=== PATIENT | male | born 1970 | race Two or more races ===

== ENCOUNTER 2020-09-18 19:51 | Observation (INO) | payer OTHER ==
[2020-09-18] MEDS ORDERED: Sodium Chloride 0.9% 2.5 ML Syringe FLUSH PRN (20:30)
[2020-09-18] MEDS ORDERED: Sodium Chloride 0.9% 10 ML Syringe FLUSH PRN (20:30)
[2020-09-18] MEDS ORDERED: Sodium Chloride 0.9% 1,000 ML IV ONE (20:30)
--- NOTE | 2020-09-18 20:33 | EDM.PDOC ---
<Felicita Marley - Last Filed: 09/18/20 22:10> ED HPI GENERAL MEDICAL PROBLEM - General Chief Complaint: Respiratory Problem Stated Complaint: PNEUMONIA, CHEST CONGESTION Time Seen by Provider: 09/18/20 20:02 Source of Information: Reports: Patient History Limitations: Reports: No Limitations - History of Present Illness INITIAL COMMENTS - FREE TEXT/NARRATIVE: HISTORY AND PHYSICAL: History of present illness: The patient is a 50-year-old male with a history of Covid on August 24 presents to the emergency department with complaints of cough, vomiting, dizziness, pressure in bilateral ears. The patient reports that he has had a double ear infection since April. He had been diagnosed with a viral viral Covid pneumonia on August 24 and was not placed on antibiotics. He states then he was placed on several different kinds of antibiotics and steroids. Presently the patient is taking Zithromax and is on a course of a 3-week steroid tapering. The patient states that he was on a 24-hour car ride and came home today. He went out for dinner and felt dizzy and vomited after a coughing fit. He has been using his albuterol inhaler which does not seem to help at all. He states that he has chest tightness. Patient denies any fever, chills, headache, change in vision, syncope or near syncope. Denies any chest pain, back pain. Denies any abdominal pain, nausea, vomiting, diarrhea, constipation or dysuria. Has not noted any blood in urine or stool. Patient has been eating and drinking appropriately. Review of systems: As per history of present illness and below otherwise all systems reviewed and negative. Past medical history: As per history of present illness and as reviewed below otherwise noncontributory. Surgical history: As per history of present illness and as reviewed below otherwise noncontributory. Social history: See social history for further information Family history: As per history of present illness and as reviewed below otherwise noncontributory. Physical exam: General: Well developed and well nourished. Alert and orientated x 3. Nontoxic in appearance and in no acute distress. Vital signs are stable and have been reviewed by me. Nursing notes were reviewed. HEENT: Atraumatic, normocephalic, pupils equal and reactive bilaterally, negative for conjunctival pallor or scleral icterus, mucous membranes moist, TMs normal bilaterally, throat clear, neck supple, nontender, trachea midline. No drooling or trismus noted. No meningeal signs. No hot potato voice noted. Lungs: Clear to auscultation bilaterally. No wheezes, rales, or rhonchi. Chest nontender. Normal work of breathing, no accessory muscles used. Heart: S1S2, regular rate and rhythm without overt murmur, gallops, or rubs. No JVD. No peripheral edema Abdomen: Soft, nondistended, nontender. Normoactive bowel sounds. Negative for masses or costovertebral tenderness. Skin: Intact, warm, dry. No lesions or rashes noted. Hematologic: No petechiae or purpra. Mucosa appropriate color and normal nail bed color and refill. Extremities: Atraumatic, moves all extremities per self without difficulty or deficits, negative for cords or calf pain. Neurovascular unremarkable. Neuro: Awake, alert, oriented. Cranial nerves II through XII unremarkable. Cerebellum unremarkable. Motor and sensory unremarkable throughout. Exam nonfocal. Psychiatric: Mood and affect are appropriate. Normal thought process. Answering questions appropriately. Notes: *This patient was seen and evaluated during the 2019 SARS-CoV-2 novel coronavirus pandemic period. Community viral transmission is ongoing at time of this encounter and the emergency department is operating under pandemic response procedures. As stated above the patient is here for continued cough and shortness of breath and chest tightness. He has been on multiple rounds of antibiotics and is currently on Zithromax. He has been on several rounds of oral steroids and is currently in a 3-week taper down dose of prednisone. As the patient is tachycardic and short of breath I will obtain an EKG, PE study, and labs. I will order the patient IV fluids and Zofran for his nausea. The patient and the are agreeable to this plan. The patient CBC is unremarkable. The state patient's glucose is 480. He has not taken his evening Metformin of 1000 mg. I will treat him with 5 units of regular insulin and recheck his glucose in 30 minutes post insulin administration. I offered to give the patient his evening Metformin but he refused. Report given to Dr. Washington. He will disposition the patient. I have talked with the patient about today's findings, in addition to providing specific details for plan of care. Reassessment at the time of disposition demonstrates that the patient is in no acute distress. The patient is stable for discharge, counseling was provided and we discussed in great detail signs and symptoms that would prompt them to return to the Emergency Department. Medication, follow up and supportive care measures were reviewed and discussed. Voices understanding and is agreeable to plan of care. Denies any further questions or concerns at this time. Diagnostics: CBC, CMP, troponin, EKG, PE study Therapeutics: IV fluids, Zofran, Regular insulin 5 units SC Prescription: Impression: Plan: 1. You were evaluated today on an emergent basis. Your 2. You can alternate Tylenol and ibuprofen as needed for pain and fever management. 3. We encourage you to follow up with your primary care provider and/or recommended specialist in the next few days for re-evaluation and further care/management. 4. If your symptoms should worsen, new symptoms develop or any of the signs and symptoms we discussed should arise please return to the emergency room or call 911 (if needed). Definitive disposition and diagnosis as appropriate pending reevaluation and review of above. - Related Data Allergies Allergy/AdvReac Type Severity Reaction Status Date / Time codeine AdvReac Mild Anxiety Verified 09/18/20 20:25 Past Medical History HEENT History: Reports: None Cardiovascular History: Reports: None Respiratory History: Reports: Pneumonia, Recurrent Gastrointestinal History: Reports: None Genitourinary History: Reports: None Musculoskeletal History: Reports: None Neurological History: Reports: None Psychiatric History: Reports: None Hematologic History: Reports: None Immunologic History: Reports: None Oncologic (Cancer) History: Reports: None Dermatologic History: Reports: None - Infectious Disease History Infectious Disease History: Reports: Chicken Pox Social & Family History - Family History Family Medical History: No Pertinent Family History - Tobacco Use Tobacco Use Status *Q: Never Tobacco User - Caffeine Use Caffeine Use: Reports: None - Recreational Drug Use Recreational Drug Use: No ED ROS GENERAL - Review of Systems Review Of Systems: Comprehensive ROS is negative, except as noted in HPI. ED EXAM, GENERAL - Physical Exam Exam: See Below (See dictation) Departure - Departure Disposition: Refer to Observation Clinical Impression: Pulmonary embolism Qualifiers: Pulmonary embolism type: unspecified Chronicity: acute Acute cor pulmonale presence: without acute cor pulmonale Qualified Code(s): I26.99 - Other pulmon gina embolism without acute cor pulmonale - Discharge Information Referrals: Radha Strong NP [Primary Care Provider] - Forms: ED Department Discharge Sepsis Event Note (ED) - Evaluation Sepsis Screening Result: No Definite Risk <Stas Washington - Last Filed: 09/18/20 23:29> Course - Vital Signs Last Recorded V/S: Last Vital Signs Temp 97.8 F 09/18/20 20:10 Pulse 114 H 09/18/20 20:10 Resp 18 09/18/20 20:10 BP 125/86 09/18/20 20:10 Pulse Ox 96 09/18/20 20:10 - Orders/Labs/Meds Orders: Active Orders 24 hr Category Date Time Status EKG Documentation Completion [RC] STAT Care 09/18/20 20:30 Active Glucose [Blood Glucose Check, Bedside] [RC] ONETIME Care 09/18/20 21:59 Active CORONAVIRUS COVID-19 ULYSSES [MOLEC] Stat Lab 09/18/20 23:22 Ordered INR,PT,PROTHROMBIN TIME [COAG] Stat Lab 09/18/20 23:23 Ordered PTT,PARTIAL THROMBOPLSTIN TIME [COAG] Stat Lab 09/18/20 23:23 Ordered Dextrose 50% in Water Med 09/18/20 21:36 Active 50 ml IV ASDIRECTED PRN Dextrose 50% in Water Med 09/18/20 23:28 Ordered 50 ml IV ASDIRECTED PRN Glucagon,Human Recombinant [GlucaGen] Med 09/18/20 21:36 Active 1 mg IM ASDIRECTED PRN Glucagon,Human Recombinant [GlucaGen] Med 09/18/20 23:28 Ordered 1 mg IM ASDIRECTED PRN Insulin Regular, Human [NovoLIN R] Med 09/18/20 23:28 Once 10 unit IVPUSH ONETIME ONE Sodium Chloride 0.9% [Saline Flush] Med 09/18/20 20:30 Active 10 ml FLUSH ASDIRECTED PRN Sodium Chloride 0.9% [Saline Flush] Med 09/18/20 20:30 Active 2.5 ml FLUSH ASDIRECTED PRN Saline Lock Insert [OM.PC] Stat Oth 09/18/20 20:30 Ordered Medication Orders Dextrose/Water (50% Dextrose In Water 50 Ml Syringe) 50 ml IV ASDIRECTED PRN PRN Reason: Hypoglycemia Glucagon (Glucagon,Human Recombinant 1 Mg Vial) 1 mg IM ASDIRECTED PRN PRN Reason: Hypoglycemia Sodium Chloride (Sodium Chloride 0.9% 10 Ml Syringe) 10 ml FLUSH ASDIRECTED PRN PRN Reason: Keep Vein Open Last Admin: 09/18/20 20:49 Dose: 10 ml Documented by: STEPHANIE Sodium Chloride (Sodium Chloride 0.9% 2.5 Ml Syringe) 2.5 ml FLUSH ASDIRECTED PRN PRN Reason: Keep Vein Open Last Admin: 09/18/20 20:50 Dose: 2.5 ml Documented by: STEPHANIE Labs: Laboratory Tests 09/18/20 09/18/20 09/18/20 Range/Units 20:46 20:46 22:18 WBC 11.57 H (4.0-11.0) K/uL RBC 5.24 (4.50-5.90) M/uL Hgb 16.3 (13.0-17.0) g/dL Hct 46.0 (38.0-50.0) % MCV 87.8 (80.0-98.0) fL MCH 31.1 (27.0-32.0) pg MCHC 35.4 (31.0-37.0) g/dL RDW Std Deviation 43.3 (28.0-62.0) fl RDW Coeff of Sandra 14 (11.0-15.0) % Plt Count 324 (150-400) K/uL MPV 10.30 (7.40-12.00) fL Add Manual Diff YES Neutrophils % (Manual) 83 H (48.0-80.0) % Band Neutrophils % 4 % Lymphocytes % (Manual) 10 L (16.0-40.0) % Monocytes % (Manual) 2 (0.0-15.0) % Metamyelocytes % 1 % Nucleated RBC % 0.0 /100WBC Absolute Seg Neuts 9.6 H (1.4-5.7) Band Neutrophils # 0.5 Lymphocytes # (Manual) 1.2 (0.6-2.4) Monocytes # (Manual) 0.2 (0.0-0.8) Absolute Metamyelocyte 0.1 Nucleated RBCs # 0 K/uL Sodium 133 L (136-148) mmol/L Potassium 4.7 (3.5-5.1) mmol/L Chloride 97 L (98-107) mmol/L Carbon Dioxide 27.5 (21.0-32.0) mmol/L BUN 12 (7.0-18.0) mg/dL Creatinine 1.2 (0.8-1.3) mg/dL Est Cr Clr Drug Dosing 72.04 mL/min Estimated GFR (MDRD) > 60.0 ml/min Glucose 480 H (74-106) mg/dL POC Glucose 346 H (70-99) mg/dL Calcium 9.0 (8.5-10.1) mg/dL Total Bilirubin 1.0 (0.2-1.0) mg/dL AST 13 L (15-37) IU/L ALT 32 (14-63) IU/L Alkaline Phosphatase 94 (46-116) U/L Troponin I < 0.050 (0.000-0.056) ng/mL Total Protein 7.1 (6.4-8.2) g/dL Albumin 3.4 (3.4-5.0) g/dL Globulin 3.7 (2.6-4.0) g/dL Albumin/Globulin Ratio 0.9 (0.9-1.6) Meds: Medications Generic Name Dose Route Start Last Admin Trade Name Freq PRN Reason Stop Dose Admin Dextrose/Water 50 ml 09/18/20 21:36 50% Dextrose In Water 50 Ml Syringe IV ASDIRECTED PRN Hypoglycemia Glucagon 1 mg 09/18/20 21:36 Glucagon,Human Recombinant 1 Mg Vial IM ASDIRECTED PRN Hypoglycemia Sodium Chloride 10 ml 09/18/20 20:30 09/18/20 20:49 Sodium Chloride 0.9% 10 Ml Syringe FLUSH 10 ml ASDIRECTED PRN Administration Keep Vein Open Sodium Chloride 2.5 ml 09/18/20 20:30 09/18/20 20:50 Sodium Chloride 0.9% 2.5 Ml Syringe FLUSH 2.5 ml ASDIRECTED PRN Administration Keep Vein Open Discontinued Medications Generic Name Dose Route Start Last Admin Trade Name Freq PRN Reason Stop Dose Admin Enoxaparin Sodium 100 mg 09/18/20 23:23 Enoxaparin 100 Mg/1 Ml Syringe SUBCUT 09/18/20 23:24 ONETIME ONE Sodium Chloride 1,000 mls @ 999 mls/hr 09/18/20 20:30 09/18/20 20:50 Normal Saline IV 09/18/20 21:30 999 mls/hr .BOLUS ONE Administration Insulin Human Regular 5 unit 09/18/20 21:36 09/18/20 21:51 Insulin Regular, Human 100 Units/Ml 10 Ml Vial SUBCUT 09/18/20 21:37 5 units ONETIME ONE Administration Protocol Iopamidol 100 ml 09/18/20 22:19 09/18/20 22:20 Iopamidol 755 Mg/Ml 500 Ml Multipack Bottle IVPUSH 09/18/20 22:20 100 ml ONETIME STA Administration - Re-Assessments/Exams Free Text/Narrative Re-Assessment/Exam: 09/18/20 22:54 CT imaging is remarkable for possible small peripheral pulmonary embolism. 09/18/20 23:29 CT scan concerning for pulmonary embolism, patient agreeable to stay in the hospital, will admit to telemetry Alps. Departure - Departure Time of Disposition: 23:29 Condition: Good Sepsis Event Note (ED) - Focused Exam Vital Signs: Vital Signs Temp Pulse Resp BP Pulse Ox 09/18/20 20:10 97.8 F 114 H 18 125/86 96 - My Orders Last 24 Hours: My Active Orders 09/18/20 23:22 CORONAVIRUS COVID-19 ULYSSES [MOLEC] Stat 09/18/20 23:23 INR,PT,PROTHROMBIN TIME [COAG] Stat PTT,PARTIAL THROMBOPLSTIN TIME [COAG] Stat 09/18/20 23:28 Dextrose 50% in Water 50 ml IV ASDIRECTED PRN Glucagon,Human Recombinant [GlucaGen] 1 mg IM ASDIRECTED PRN Insulin Regular, Human [NovoLIN R] 10 unit IVPUSH ONETIME ONE - Assessment/Plan Last 24 Hours: My Active Orders 09/18/20 23:22 CORONAVIRUS COVID-19 ULYSSES [MOLEC] Stat 09/18/20 23:23 INR,PT,PROTHROMBIN TIME [COAG] Stat PTT,PARTIAL THROMBOPLSTIN TIME [COAG] Stat 09/18/20 23:28 Dextrose 50% in Water 50 ml IV ASDIRECTED PRN Glucagon,Human Recombinant [GlucaGen] 1 mg IM ASDIRECTED PRN Insulin Regular, Human [NovoLIN R] 10 unit IVPUSH ONETIME ONE
--- NOTE | 2020-09-18 21:02 | PCM.EKG ---
#1 Interpretation EKG Date: 09/18/20 Time: 20:51 Rhythm: NSR Rate (Beats/Min): 100 [place]: Normal P-Wave: Present QRS: Normal ST-T: Normal QT: Normal DE/PQ Interval: 114 Comparison: NA - No Prior EKG EKG Interpretation Comments: normal EKG
[2020-09-18 21:27] LABS: BLOOD UREA NITROGEN,BUN 12 mg/dL (7.0-18.0); CARBON DIOXIDE,CO2 27.5 mmol/L (21.0-32.0); CHLORIDE,CL 97 mmol/L (98-107); GLUCOSE RANDOM 480 mg/dL (74-106); POTASSIUM,K 4.7 mmol/L (3.5-5.1); SODIUM,NA 133 mmol/L (136-148)
[2020-09-18] MEDS ORDERED: Insulin Regular, Human 100 Units/ML 10 ML Vial SUBCUT ONE (21:36)
[2020-09-18] MEDS ORDERED: 50% Dextrose in Water 50 ML Syringe IV PRN ×2 (21:36→23:28)
[2020-09-18] MEDS ORDERED: Glucagon,Human Recombinant 1 MG Vial IM PRN ×2 (21:36→23:28)
[2020-09-18] MEDS ORDERED: Iopamidol 755 MG/ML 500 ML Multipack Bottle IVPUSH STA (22:19)
--- NOTE | 2020-09-18 22:49 | CT ---
Indication: Post COVID. Tachycardia. Shortness of breath. Technique: Multiple contiguous axial images were obtained from the thoracic inlet through the upper abdomen after the intravenous administration 100 milliliters Isovue 370. This examination is tailored for the evaluation of pulmonary arteries. Please note that all CT scans at this facility use dose modulation, iterative reconstruction, and/or weight-based dosing when appropriate to reduce radiation dose to as low as reasonably achievable. Comparison: None Findings: Questionable small pulmonary embolism is identified peripherally within the pulmonary artery to the right lower lobe. This is best seen on image number 107, series 401. This measures 1 cm in length. There is no evidence of right heart strain. The heart is normal in size. No pericardial effusion is identified. No mediastinal, hilar, or axillary lymphadenopathy is identified. A small pericardial effusion is identified. The aorta is normal in caliber. The visualized portions of the liver, gallbladder, spleen, pancreas, adrenals, and kidneys are normal. Degenerative changes of the spine are identified. No lytic or blastic lesions are seen. Patchy ground-glass opacities are identified bilaterally, peripherally. This is nonspecific. No pleural effusion or pneumothorax is identified. 3 mm pleural-based pulmonary nodule posterior right lower lobe, best seen on image 47, series 3. Impression: Questionable nonocclusive thrombus identified within the pulmonary artery to the right lower lobe. Peripheral patchy ground-glass opacities bilaterally, mild. This is nonspecific. Right lower lobe pulmonary nodule. Follow up should be performed according to the Fleischner Society Criteria. These findings were called to Dr. Freeman at the time of this dictation. Please note that all CT scans at this facility use dose modulation, iterative reconstruction, and/or weight-based dosing when appropriate to reduce radiation dose to as low as reasonably achievable. Dictated by Ramona Pierre MD @ 09/18/2020 10:47:[address] Ramona Pierre @ Sep 18 2020 10:47PM
[2020-09-18] MEDS ORDERED: Enoxaparin 100 MG/1 ML Syringe SUBCUT ONE (23:23)
[2020-09-18] MEDS ORDERED: Insulin Regular, Human 100 Units/ML 10 ML Vial IVPUSH ONE (23:28)
[2020-09-19] MEDS ORDERED: Acetaminophen 325 MG Tab PO PRN (02:38)
[2020-09-19] MEDS ORDERED: Albuterol/Ipratropium 3.0-0.5 MG/3 ML Neb Soln NEB PRN (02:38)
[2020-09-19] MEDS ORDERED: Glucagon,Human Recombinant 1 MG Vial IM PRN (02:41)
[2020-09-19] MEDS ORDERED: 50% Dextrose in Water 50 ML Syringe IV PRN (02:41)
[2020-09-19] MEDS ORDERED: Lactated Ringers 1,000 ML IV SCH (02:45)
[2020-09-19] MEDS ORDERED: Levofloxacin/Dextrose 5%-Water 750 MG in Premix Bag 1 BAG IV ONE (03:00)
[2020-09-19 05:41] LABS: HEMOGLOBIN A1C 10.1 %
[2020-09-19 05:42] LABS: BLOOD UREA NITROGEN,BUN 10 mg/dL (7.0-18.0); CARBON DIOXIDE,CO2 29.1 mmol/L (21.0-32.0); CHLORIDE,CL 103 mmol/L (98-107); GLUCOSE RANDOM 266 mg/dL (74-106); SODIUM,NA 138 mmol/L (136-148)
[2020-09-19] MEDS: Insulin Aspart 100 Units/ML 3 ML Pen SUBCUT SCH ×2 (07:43→11:55)
--- NOTE | 2020-09-19 08:16 | PCM.HP.2 ---
H&P History of Present Illness - General Date of Service: 09/19/20 Admit Problem/Dx: Admission Diagnosis/Problem Admission Diagnosis/Problem Pulmonary embolism Source of Information: Patient History Limitations: Reports: No Limitations - History of Present Illness Initial Comments - Free Text/Narative: This 50-year-old male with past medical history of diabetes and recent COVID-19 infection found on August 24, 2020, presented to the ER with complaints of continued cough shortness of breath and otherwise not feeling well. He reports has been on multiple rounds of antibiotics and steroids recently took a long 24- hour car ride home and back to [place] and arrived yesterday evening. He reports that he went out to eat had a coughing fit and vomited. He reports he has had continued shortness of breath since having COVID-19. He denied needing hospitalization but noted he was hypoxic at 1 point and was treated with nebulizers to improve his oxygenation. He denies any chills fevers sore throat. Denies any chest pain reports mild shortness of breath. Denies any hemoptysis. Denies any neurological symptoms. Denies any abdominal pain or urinary concerns. No black or bloody bowel movements. He reports that he recently drove 19 hours to and from [place] back to [place]. He denies any tobacco use no recreational drug use and intermittent social alcohol use. Denies any history of blood clots and family history of blood clots. Denies any cancer history for himself. In the ER mild leukocytosis noted 11,570, platelet count 324,000. Hemoglobin 16.3 hematocrit 46.0. Sodium 133 potassium 4.7 glucose elevated at 480 troponin negative. Due to recent history of COVID-19 and long car ride CT Angio chest was obtained which revealed nonocclusive thrombus identified within the pulmonary artery to the right lower lobe, peripheral patchy groundglass opacities bilaterally which is mild. Right lower lobe pulmonary nodule which should be followed up in 6 months with PCP. No right heart strain noted on CT. Patient was treated with full dose Lovenox, Levaquin and insulin while in the ER. Patient will be admitted observation for pulmonary embolism. - Related Data Allergies/Adverse Reactions: Allergies Allergy/AdvReac Type Severity Reaction Status Date / Time codeine AdvReac Mild Anxiety Verified 09/19/20 01:38 Home Medications: Home Meds Acetaminophen [Tylenol] 650 mg PO Q4H PRN tablet 09/19/20 [Rx] Albuterol/Ipratropium [DuoNeb 3.0-0.5 MG/3 ML] 1 ampule INH Q6HR #1 box 09/19/20 [Rx] Apixaban [Eliquis] 5 - 10 mg PO BID #70 tablet 09/19/20 [Rx] Ascorbic Acid [Vitamin C] 1,000 mg PO DAILY 09/19/20 [History] Cholecalciferol (Vitamin D3) [Vitamin D3] 1,000 unit PO DAILY 09/19/20 [History] Fluticasone Propionate [Flonase] 1 - 2 spray NS ASDIRECTED 09/19/20 [History] Insulin Aspart [NovoLOG] See Protocol SUBCUT TIDAC #1 pen 09/19/20 [Rx] Levofloxacin [Levaquin] 750 mg PO DAILY 5 Days #5 tablet 09/19/20 [Rx] Pen Needle, Diabetic [Pen Needle] 1 each MC TID #1 box 09/19/20 [Rx] metFORMIN HCl [Metformin HCl] 1 tab PO ASDIRECTED 09/19/20 [History] predniSONE [Prednisone] 2 tab PO ASDIRECTED #0 09/19/20 [Rx] Past Medical History HEENT History: Reports: None Cardiovascular History: Reports: None Respiratory History: Reports: Pneumonia, Recurrent Gastrointestinal History: Reports: None Genitourinary History: Reports: None Musculoskeletal History: Reports: None Neurological History: Reports: None Psychiatric History: Reports: None Endocrine/Metabolic History: Reports: Diabetes, Type II Hematologic History: Reports: None Immunologic History: Reports: None Oncologic (Cancer) History: Reports: None Dermatologic History: Reports: None - Infectious Disease History Infectious Disease History: Reports: Chicken Pox Social & Family History - Family History Family Medical History: No Pertinent Family History - Tobacco Use Tobacco Use Status *Q: Never Tobacco User - Caffeine Use Caffeine Use: Reports: Soda - Recreational Drug Use Recreational Drug Use: No H&P Review of Systems - Review of Systems: Review Of Systems: See Below General: Reports: No Symptoms. Denies: Fever, Chills, Malaise, Weakness HEENT: Reports: No Symptoms. Denies: Headaches, Sinus Congestion, Sore Throat Pulmonary: Reports: Shortness of Breath, Pleuritic Chest Pain Cardiovascular: Reports: No Symptoms. Denies: Chest Pain, Syncope Gastrointestinal: Reports: No Symptoms. Denies: Abdominal Pain, Black Stool, Bloody Stool, Nausea, Vomiting Genitourinary: Reports: No Symptoms. Denies: Dysuria, Frequency Musculoskeletal: Reports: No Symptoms Skin: Reports: No Symptoms Psychiatric: Reports: No Symptoms Neurological: Reports: No Symptoms Hematologic/Lymphatic: Reports: No Symptoms Immunologic: Reports: No Symptoms Exam - Exam Exam: See Below - Vital Signs Vital Signs: Last Vital Signs Temp 97.5 F 09/19/20 07:30 Pulse 84 09/19/20 07:30 Resp 17 09/19/20 07:30 BP 126/83 09/19/20 07:30 Pulse Ox 94 L 09/19/20 07:30 Weight: 73.119 kg - Exam Quality Assessment: DVT Prophylaxis. No: Supplemental Oxygen General: Alert, Oriented, Cooperative Neck: Supple, Trachea Midline Lungs: Clear to Auscultation, Normal Respiratory Effort Cardiovascular: Regular Rate, Regular Rhythm, Normal S1, Normal S2 GI/Abdominal Exam: Normal Bowel Sounds, Soft, Non-Tender Back Exam: Normal Inspection, Full Range of Motion Extremities: Normal Inspection, Normal Range of Motion, Non-Tender, No Pedal Edema Skin: Warm, Dry Neurological: Cranial Nerves Intact Neuro Extensive - Mental Status: Alert, Oriented x3 Neuro Extensive - Motor, Sensory, Reflexes: CN II-XII Intact Psychiatric: Alert, Normal Affect, Normal Mood - Patient Data Lab Results Last 24 hrs: Laboratory Results - last 24 hr 09/18/20 09/18/20 09/18/20 Range/Units 20:46 20:46 22:18 WBC 11.57 H (4.0-11.0) K/uL RBC 5.24 (4.50-5.90) M/uL Hgb 16.3 (13.0-17.0) g/dL Hct 46.0 (38.0-50.0) % MCV 87.8 (80.0-98.0) fL MCH 31.1 (27.0-32.0) pg MCHC 35.4 (31.0-37.0) g/dL RDW Std Deviation 43.3 (28.0-62.0) fl RDW Coeff of Sandra 14 (11.0-15.0) % Plt Count 324 (150-400) K/uL MPV 10.30 (7.40-12.00) fL Add Manual Diff YES Neutrophils % (Manual) 83 H (48.0-80.0) % Band Neutrophils % 4 % Lymphocytes % (Manual) 10 L (16.0-40.0) % Monocytes % (Manual) 2 (0.0-15.0) % Metamyelocytes % 1 % Nucleated RBC % 0.0 /100WBC Absolute Seg Neuts 9.6 H (1.4-5.7) Band Neutrophils # 0.5 Lymphocytes # (Manual) 1.2 (0.6-2.4) Monocytes # (Manual) 0.2 (0.0-0.8) Absolute Metamyelocyte 0.1 Nucleated RBCs # 0 K/uL INR APTT (18.6-31.3) SEC Sodium 133 L (136-148) mmol/L Potassium 4.7 (3.5-5.1) mmol/L Chloride 97 L (98-107) mmol/L Carbon Dioxide 27.5 (21.0-32.0) mmol/L BUN 12 (7.0-18.0) mg/dL Creatinine 1.2 (0.8-1.3) mg/dL Est Cr Clr Drug Dosing 72.04 mL/min Estimated GFR (MDRD) > 60.0 ml/min Glucose 480 H (74-106) mg/dL POC Glucose 346 H (70-99) mg/dL Hemoglobin A1c (4.5 - 6.2) % Lactic Acid (0.4-2.0) mmol/L Calcium 9.0 (8.5-10.1) mg/dL Total Bilirubin 1.0 (0.2-1.0) mg/dL AST 13 L (15-37) IU/L ALT 32 (14-63) IU/L Alkaline Phosphatase 94 (46-116) U/L Troponin I < 0.050 (0.000-0.056) ng/mL Total Protein 7.1 (6.4-8.2) g/dL Albumin 3.4 (3.4-5.0) g/dL Globulin 3.7 (2.6-4.0) g/dL Albumin/Globulin Ratio 0.9 (0.9-1.6) 05/23/21 05/24/21 05/24/21 Range/Units 23:35 00:42 05:20 WBC (4.0-11.0) K/uL RBC (4.50-5.90) M/uL Hgb (13.0-17.0) g/dL Hct (38.0-50.0) % MCV (80.0-98.0) fL MCH (27.0-32.0) pg MCHC (31.0-37.0) g/dL RDW Std Deviation (28.0-62.0) fl RDW Coeff of Sandra (11.0-15.0) % Plt Count (150-400) K/uL MPV (7.40-12.00) fL Add Manual Diff Neutrophils % (Manual) (48.0-80.0) % Band Neutrophils % % Lymphocytes % (Manual) (16.0-40.0) % Monocytes % (Manual) (0.0-15.0) % Metamyelocytes % % Nucleated RBC % /100WBC Absolute Seg Neuts (1.4-5.7) Band Neutrophils # Lymphocytes # (Manual) (0.6-2.4) Monocytes # (Manual) (0.0-0.8) Absolute Metamyelocyte Nucleated RBCs # K/uL INR 0.97 APTT 22.2 (18.6-31.3) SEC Sodium (136-148) mmol/L Potassium (3.5-5.1) mmol/L Chloride (98-107) mmol/L Carbon Dioxide (21.0-32.0) mmol/L BUN (7.0-18.0) mg/dL Creatinine (0.8-1.3) mg/dL Est Cr Clr Drug Dosing mL/min Estimated GFR (MDRD) ml/min Glucose (74-106) mg/dL POC Glucose 260 H (70-99) mg/dL Hemoglobin A1c (4.5 - 6.2) % Lactic Acid 1.8 (0.4-2.0) mmol/L Calcium (8.5-10.1) mg/dL Total Bilirubin (0.2-1.0) mg/dL AST (15-37) IU/L ALT (14-63) IU/L Alkaline Phosphatase (46-116) U/L Troponin I (0.000-0.056) ng/mL Total Protein (6.4-8.2) g/dL Albumin (3.4-5.0) g/dL Globulin (2.6-4.0) g/dL Albumin/Globulin Ratio (0.9-1.6) 09/19/20 09/19/20 09/19/20 Range/Units 05:20 05:20 05:20 WBC 11.89 H (4.0-11.0) K/uL RBC 4.71 (4.50-5.90) M/uL Hgb 14.2 (13.0-17.0) g/dL Hct 41.4 (38.0-50.0) % MCV 87.9 (80.0-98.0) fL MCH 30.1 (27.0-32.0) pg MCHC 34.3 (31.0-37.0) g/dL RDW Std Deviation 43.6 (28.0-62.0) fl RDW Coeff of Sandra 14 (11.0-15.0) % Plt Count 268 (150-400) K/uL MPV 10.00 (7.40-12.00) fL Add Manual Diff YES Neutrophils % (Manual) 75 (48.0-80.0) % Band Neutrophils % % Lymphocytes % (Manual) 16 (16.0-40.0) % Monocytes % (Manual) 8 (0.0-15.0) % Metamyelocytes % 1 % Nucleated RBC % 0.0 /100WBC Absolute Seg Neuts 8.9 H (1.4-5.7) Band Neutrophils # Lymphocytes # (Manual) 1.9 (0.6-2.4) Monocytes # (Manual) 1.0 H (0.0-0.8) Absolute Metamyelocyte 0.1 Nucleated RBCs # 0 K/uL INR APTT (18.6-31.3) SEC Sodium 138 (136-148) mmol/L Potassium 4.0 (3.5-5.1) mmol/L Chloride 103 (98-107) mmol/L Carbon Dioxide 29.1 (21.0-32.0) mmol/L BUN 10 (7.0-18.0) mg/dL Creatinine 0.8 (0.8-1.3) mg/dL Est Cr Clr Drug Dosing 108.06 mL/min Estimated GFR (MDRD) > 60.0 ml/min Glucose 266 H (74-106) mg/dL POC Glucose (70-99) mg/dL Hemoglobin A1c 10.1 H (4.5 - 6.2) % Lactic Acid (0.4-2.0) mmol/L Calcium 8.4 L (8.5-10.1) mg/dL Total Bilirubin (0.2-1.0) mg/dL AST (15-37) IU/L ALT (14-63) IU/L Alkaline Phosphatase (46-116) U/L Troponin I (0.000-0.056) ng/mL Total Protein (6.4-8.2) g/dL Albumin (3.4-5.0) g/dL Globulin (2.6-4.0) g/dL Albumin/Globulin Ratio (0.9-1.6) // Range/Units 06:22 WBC (4.0-11.0) K/uL RBC (4.50-5.90) M/uL Hgb (13.0-17.0) g/dL Hct (38.0-50.0) % MCV (80.0-98.0) fL MCH (27.0-32.0) pg MCHC (31.0-37.0) g/dL RDW Std Deviation (28.0-62.0) fl RDW Coeff of Sandra (11.0-15.0) % Plt Count (150-400) K/uL MPV (7.40-12.00) fL Add Manual Diff Neutrophils % (Manual) (48.0-80.0) % Band Neutrophils % % Lymphocytes % (Manual) (16.0-40.0) % Monocytes % (Manual) (0.0-15.0) % Metamyelocytes % % Nucleated RBC % /100WBC Absolute Seg Neuts (1.4-5.7) Band Neutrophils # Lymphocytes # (Manual) (0.6-2.4) Monocytes # (Manual) (0.0-0.8) Absolute Metamyelocyte Nucleated RBCs # K/uL INR APTT (18.6-31.3) SEC Sodium (136-148) mmol/L Potassium (3.5-5.1) mmol/L Chloride (98-107) mmol/L Carbon Dioxide (21.0-32.0) mmol/L BUN (7.0-18.0) mg/dL Creatinine (0.8-1.3) mg/dL Est Cr Clr Drug Dosing mL/min Estimated GFR (MDRD) ml/min Glucose (74-106) mg/dL POC Glucose 235 H (70-99) mg/dL Hemoglobin A1c (4.5 - 6.2) % Lactic Acid (0.4-2.0) mmol/L Calcium (8.5-10.1) mg/dL Total Bilirubin (0.2-1.0) mg/dL AST (15-37) IU/L ALT (14-63) IU/L Alkaline Phosphatase (46-116) U/L Troponin I (0.000-0.056) ng/mL Total Protein (6.4-8.2) g/dL Albumin (3.4-5.0) g/dL Globulin (2.6-4.0) g/dL Albumin/Globulin Ratio (0.9-1.6) Result Diagrams: 09/19/20 05:20 09/19/20 05:20 Sepsis Event Note - Evaluation Sepsis Screening Result: No Definite Risk - Focused Exam Vital Signs: Vital Signs Temp Pulse Resp BP Pulse Ox Pulse Ox 09/19/20 07:30 97.5 F 84 17 126/83 94 L 09/19/20 03:36 97.8 F 82 18 119/75 95 09/19/20 02:38 95 09/19/20 01:30 97.9 F 89 18 119/84 95 - Problem List (1) Pulmonary embolism SNOMED Code(s): 20948798 ICD Code: I26.99 - OTHER PULMONARY EMBOLISM WITHOUT ACUTE COR PULMONALE Status: Acute Current Visit: Yes Qualifiers: Pulmonary embolism type: unspecified Chronicity: acute Acute cor pulmonale presence: without acute cor pulmonale Qualified Code(s): I26.99 - Other pulmonary embolism without acute cor pulmonale (2) DM type 2 (diabetes mellitus, type 2) SNOMED Code(s): 09119618 ICD Code: E11.9 - TYPE 2 DIABETES MELLITUS WITHOUT COMPLICATIONS Status: Chronic Current Visit: Yes Qualifiers: Diabetes mellitus alf insulin use: without director long term care use Diabetes mellitus complication status: without complication Qualified Code(s): E11.9 - Type 2 diabetes mellitus without complications Problem List Initiated/Reviewed/Updated: Yes Orders Last 24hrs: Active Orders 24 hr Category Date Time Status Patient Status [ADT] Routine ADT 09/18/20 23:30 Active Accu Check [Blood Glucose Check, Bedside] [RC] TIDAC Care 09/19/20 07:30 Active Ambulate [RC] ASDIRECTED Care 09/19/20 02:38 Active EKG 12 Lead [EKG Documentation Completion] [] ROUTINE Care 09/19/20 02:15 Active Glucose [Blood Glucose Check, Bedside] [RC] ONETIME Care 09/18/20 21:59 Active Incentive Spirometry [RT Incentive Spirometry] [RC] Care 09/19/20 02:44 Active Q2HWA Oxygen Therapy [RC] PRN Care 09/19/20 02:38 Active RT Aerosol Therapy [RC] ASDIRECTED Care 09/19/20 02:40 Active Telemetry Monitoring [Cardiac Monitoring] [RC] Q8H Care 09/19/20 01:31 Active VTE/DVT Education [] PER UNIT ROUTINE Care 09/19/20 02:38 Active Vital Signs [RC] Q4H Care 09/19/20 02:38 Active [employer] Diet [DIET] Diet 09/19/20 Breakfast Active Echo Comp wo Cont [US] Urgent Exams 09/19/20 08:11 Ordered Acetaminophen [TylenoL] Med 09/19/20 02:38 Active 650 mg PO Q4H PRN Albuterol/Ipratropium [DuoNeb 3.0-0.5 MG/3 ML] Med 09/19/20 02:38 Active 3 ml NEB Q4HRRT PRN Dextrose 50% in Water Med 09/18/20 21:36 Active 50 ml IV ASDIRECTED PRN Dextrose 50% in Water Med 09/18/20 23:28 Active 50 ml IV ASDIRECTED PRN Enoxaparin [Lovenox] Med 09/19/20 20:00 Active 100 mg SUBCUT Q24H Glucagon,Human Recombinant [GlucaGen] Med 09/18/20 21:36 Active 1 mg IM ASDIRECTED PRN Glucagon,Human Recombinant [GlucaGen] Med 09/18/20 23:28 Active 1 mg IM ASDIRECTED PRN Insulin Aspart [NovoLOG] Med 09/19/20 07:30 Active See Protocol SUBCUT TIDAC Lactated Ringers [Ringers, Lactated] 1,000 ml Med 09/19/20 02:45 Active IV ASDIRECTED Levofloxacin/Dextrose 5%-Water [Levaquin in D5W 750 MG/ Med 09/19/20 21:00 Active 150 ML] 750 mg Premix Bag 1 bag IV Q24H Sodium Chloride 0.9% [Saline Flush] Med 09/18/20 20:30 Active 10 ml FLUSH ASDIRECTED PRN Sodium Chloride 0.9% [Saline Flush] Med 09/18/20 20:30 Active 2.5 ml FLUSH ASDIRECTED PRN Saline Lock Insert [OM.PC] Stat Oth 09/18/20 20:30 Ordered Medication Orders Acetaminophen (Acetaminophen 325 Mg Tab) 650 mg PO Q4H PRN PRN Reason: Pain (Mild 1-3)/fever Albuterol/Ipratropium (Albuterol/Ipratropium 3.0-0.5 Mg/3 Ml Neb Soln) 3 ml NEB Q4HRRT PRN PRN Reason: Shortness Of Breath/wheezing Dextrose/Water (50% Dextrose In Water 50 Ml Syringe) 50 ml IV ASDIRECTED PRN PRN Reason: Hypoglycemia Dextrose/Water (50% Dextrose In Water 50 Ml Syringe) 50 ml IV ASDIRECTED PRN PRN Reason: Hypoglycemia Enoxaparin Sodium (Enoxaparin 40 Mg/0.4 Ml Syringe) 100 mg SUBCUT Q24H MENDOZA Glucagon (Glucagon,Human Recombinant 1 Mg Vial) 1 mg IM ASDIRECTED PRN PRN Reason: Hypoglycemia Glucagon (Glucagon,Human Recombinant 1 Mg Vial) 1 mg IM ASDIRECTED PRN PRN Reason: Hypoglycemia Lactated Ringer's (Ringers, Lactated) 1,000 mls @ 125 mls/hr IV ASDIRECTED MENDOZA Last Admin: 09/19/20 03:19 Dose: 125 mls/hr Documented by: HUNTER Levofloxacin/Dextrose 750 mg/ (Premix) 150 mls @ 100 mls/hr IV Q24H MENDOZA Insulin Aspart (Insulin Aspart 100 Units/Ml 3 Ml Pen) 0 unit SUBCUT TIDAC [facility]; Protocol Last Admin: 09/19/20 07:43 Dose: 6 unit Documented by: ALBIMAR Sodium Chloride (Sodium Chloride 0.9% 10 Ml Syringe) 10 ml FLUSH ASDIRECTED PRN PRN Reason: Keep Vein Open Last Admin: 09/18/20 20:49 Dose: 10 ml Documented by: STEPHANIE Sodium Chloride (Sodium Chloride 0.9% 2.5 Ml Syringe) 2.5 ml FLUSH ASDIRECTED PRN PRN Reason: Keep Vein Open Last Admin: 09/18/20 20:50 Dose: 2.5 ml Documented by: STEPHANIE Assessment/Plan Comment:: This 50-year-old male admitted with small pulmonary embolism 1. PE Continue Lovenox full dose Discussed transition to NOAC Vital signs stable no hypoxia or hypotension noted. Obtain echo 2. Viral pneumonia Continue Levaquin -No hypoxia noted -Likely secondary to COVID-19 -Encourage pulmonary toileting with I-S and Acapella -DuoNebs as needed 3. Diabetes type 2, uncontrolled NovoLog sliding scale Check blood sugars 3 times daily AC A1c 10.1 Continue Metformin at home but will need to consider more aggressive management as hemoglobin A1c is elevated. CODE STATUS: Full code Discharge plan: Darrin is doing well this morning. Patient not requiring oxygen and is up ambulating keeping sats 94% with no significant distress. Patient will be discharged home today with Eliquis 10 mg twice daily for 7 days and then drop down to 5 mg twice daily for the next 3 to 6 months. Patient likely has provoked PE with multifactorial risk factor. He was recently diagnosed with COVID-19, treated with lengthy course of steroids, and recent travel. On admission patient was noted to have significantly elevated blood sugars with an A1c of 10.1. This likely is secondary to long course of steroids patient counseled on stopping steroids after the next 2 days and no further steroids. H e will be discharged home with insulin sliding scale with meals until blood sugars have improved and steroids have no effect on his system. Patient noted to have possible viral pneumonia secondary to COVID-19 there is risk of bacterial pneumonia after prolonged course of viral illness. Patient was treated with Levaquin 750 mg. This will be continued for 5 more days. Patient will have follow-up with PCP in 1 week. He is to monitor breathing symptoms and if chest pain or shortness of breath worsen he is to seek immediate medical attention. He was counseled on bleeding risk while on Eliquis. And was counseled he should start this 10 mg tonight as his first dose of Lovenox was given last evening. Patient is to return to the ER clinic if concerns should arise.
[2020-09-19] MEDS ORDERED: Enoxaparin 40 MG/0.4 ML Syringe SUBCUT SCH (20:00)
[2020-09-19] MEDS ORDERED: Levofloxacin/Dextrose 5%-Water 750 MG in Premix Bag 1 BAG IV SCH (21:00)
== END 2020-09-19 14:45 | disposition home or self-care (01) ==
LOC: MW.ED 19:51 → MW.MS 23:30
PROVIDERS: ADMIT Student in an Organized Health Care Education/Training Program; ATTEND Student in an Organized Health Care Education/Training Program
DX: I26.99 Other pulmonary embolism without acute cor pulmonale (principal); J12.9 Viral pneumonia, unspecified; E11.9 Type 2 diabetes mellitus without complications; D72.829 Elevated white blood cell count, unspecified; Z88.5 Allergy status to narcotic agent; Z86.16 Personal history of COVID-19; Z79.899 Other long term (current) drug therapy; Z79.4 Long term (current) use of insulin
CPT/HCPCS: 36415; 71275; 80048; 80053; 82947; 83036; 83605; 84484; 85025; 85610; 85730; 96372; 99285; J1650; J1815; J1956; J7030; J7120; Q9967; 93010; 96365; 99284; G0378

== ENCOUNTER 2021-06-19 07:41 | Day surgery (SDC) | payer OTHER ==
[~2021-06-19 07:41] MED LIST: Lactated Ringers 1,000 ML IV SCH; ceFAZolin 2 GM in Premix Bag 1 BAG IV ONE
[2021-06-19] MEDS ORDERED: Naloxone 0.4 MG/ML SDV IVPUSH PRN (08:21)
[2021-06-19] MEDS ORDERED: Metoclopramide 10 MG/2 ML SDV IVPUSH PRN (08:21)
[2021-06-19] MEDS ORDERED: HYDROmorphone 1 MG/ML Syringe IVPUSH PRN (08:21)
[2021-06-19] MEDS ORDERED: fentaNYL 100 MCG/2 ML SDV IVPUSH PRN (08:21)
[2021-06-19] MEDS ORDERED: Ondansetron 4 MG/2 ML SDV IVPUSH PRN ×2 (08:21→11:07)
[2021-06-19] MEDS ORDERED: Albuterol 0.083% 2.5 MG/3 ML Neb Soln NEB PRN (08:21)
[2021-06-19] MEDS ORDERED: fentaNYL 100 MCG/2 ML SDV ONE (09:01)
[2021-06-19] MEDS ORDERED: Lidocaine 2% 5 ML SDV ONE (09:01)
[2021-06-19] MEDS ORDERED: Rocuronium Bromide 50 MG/5 ML Syringe ONE ×3 (09:01→10:35)
[2021-06-19] MEDS ORDERED: Propofol 200 MG/20 ML SDV ONE ×3 (09:01→10:32)
[2021-06-19] MEDS ORDERED: Midazolam 1 MG/ML 2 ML SDV ONE (09:01)
[2021-06-19] MEDS ORDERED: fentaNYL 250 MCG/5 ML SDV ONE ×2 (09:32→10:31)
[2021-06-19] MEDS ORDERED: Ropivacaine 0.5% 5 MG/ML 30 ML SDV ONE (09:44)
[2021-06-19] MEDS ORDERED: Bupivacaine 0.5% 10 ML SDV ONE (09:45)
[2021-06-19] MEDS ORDERED: ceFAZolin 1 GM Vial ONE (09:45)
[2021-06-19] MEDS ORDERED: Ketorolac 30 MG/ML SDV ONE (10:35)
[2021-06-19] MEDS ORDERED: Sugammadex Sodium 200 MG/2 ML VIAL ONE (10:35)
[2021-06-19] MEDS ORDERED: Dexamethasone 4 MG/ML 5 ML MDV ONE (10:35)
[2021-06-19] MEDS ORDERED: Lidocaine 2% Jelly 30 ML Tube ONE (10:35)
[2021-06-19] MEDS ORDERED: Ondansetron 4 MG/2 ML SDV ONE (10:35)
[2021-06-19] MEDS ORDERED: Acetaminophen/HYDROcodone 325-5 MG Tab PO PRN (11:07)
[2021-06-19] MEDS ORDERED: Morphine 4 MG/ML VIAL IVPUSH PRN (11:07)
[2021-06-19] MEDS ORDERED: Lactated Ringers 1,000 ML IV SCH (11:15)
== END 2021-06-19 13:15 | disposition home or self-care (01) ==
LOC: MW.SDS 07:41
PROVIDERS: ATTEND Surgery
DX: K40.90 Unilateral inguinal hernia, without obstruction or gangrene, not specified as recurrent (principal); E78.00 Pure hypercholesterolemia, unspecified; E11.9 Type 2 diabetes mellitus without complications; Z88.8 Allergy status to other drugs, medicaments and biological substances; Z72.89 Other problems related to lifestyle; Y90.0 Blood alcohol level of less than 20 mg/100 ml; Z86.16 Personal history of COVID-19; Z86.2 Personal history of diseases of the blood and blood-forming organs and certain disorders involving the immune mechanism; Z79.4 Long term (current) use of insulin; Z79.899 Other long term (current) drug therapy
CPT/HCPCS: 49505; 82947; C1781; J0131; J0690; J1100; J1885; J2704; J2795; J3010; J3490; J7120; 00830; 64486; J2250; J2405